=== PATIENT | male | born 1960 | race Caucasian/White ===

== ENCOUNTER 2023-02-05 16:20 | Emergency (ER) | payer BC | END 2023-02-05 17:37 | disposition home or self-care (01) | LOC: JP.ED 16:20 | DX: H10.9 Unspecified conjunctivitis (principal); Z88.0 Allergy status to penicillin | CPT/HCPCS: 99283 ==

== ENCOUNTER 2023-08-05 07:35 | Day surgery (SDC) | payer BC ==
[~2023-08-05 07:35] MED LIST: Midazolam 1 MG/ML 2 ML SDV ONE; Propofol 200 MG/20 ML SDV ONE; fentaNYL 50 MCG/ML SDV ONE
[2023-08-05] MEDS ORDERED: Lactated Ringers 1,000 ML IV SCH (08:00)
== END 2023-08-05 11:45 | disposition home or self-care (01) ==
LOC: JP.SDS 07:35
PROVIDERS: ATTEND Student in an Organized Health Care Education/Training Program
DX: Z12.11 Encounter for screening for malignant neoplasm of colon (principal); D12.4 Benign neoplasm of descending colon; K57.30 Diverticulosis of large intestine without perforation or abscess without bleeding; K63.5 Polyp of colon
CPT/HCPCS: 45380; 88305; J2250; J2704; J3010; J7120

== ENCOUNTER 2024-11-21 07:32 | Day surgery (SDC) | payer BC ==
[~2024-11-21 07:32] MED LIST changes: +Bupivacaine 0.5% 30 ML SDV ONE; +fentaNYL 100 MCG/2 ML SDV ONE; -fentaNYL 50 MCG/ML SDV ONE
[2024-11-21 07:48] LABS: HEMATOCRIT 45.3 % (38.4-49.7); HEMOGLOBIN 15.6 g/dL (12.9-16.9); MEAN CORPUSCULAR HEMOGLOBIN 31.1 pg (31.6-35.5); MEAN CORPUSCULAR HGB CONC 34.4 g/dL (31.6-35.5); MEAN CORPUSCULAR VOLUME 90.4 fL (81.4-99.0); RED BLOOD CELL COUNT 5.01 M/uL (4.14-5.76); WHITE BLOOD CELL COUNT,WBC 8.1 K/uL (3.2-11.0)
[2024-11-21 08:16] LABS: A/G RATIO 1.2 (1.2-2.2); ALANINE AMINOTRANSFERASE,ALT 37 U/L (12-78); ALKALINE PHOSPHATASE 113 U/L (46-116); ANION GAP 11.6 mmol/L (5.0-14.0); ASPARTATE AMNIOTRANSFERASE,AST 28 U/L (15-37); BILIRUBIN TOTAL 0.3 mg/dL (0.2-1.0); BLOOD UREA NITROGEN,BUN 14 mg/dL (7-18); CALCIUM 8.9 mg/dL (8.5-10.1); CARBON DIOXIDE,CO2 24 mmol/L (21-32); CHLORIDE,CL 104 mmol/L (100-108); EST CRCL DRUG DOSING (CG) 76.59 mL/min; ESTIMATED GFR 85 mL/min (>60); GLUCOSE RANDOM 107 mg/dL (74-106); POTASSIUM,K 3.9 mmol/L (3.6-5.2); PROTEIN TOTAL,TP 7.4 g/dL (6.4-8.2); SODIUM,NA 140 mmol/L (140-148)
[2024-11-21] MEDS: Lactated Ringers 1,000 ML IV SCH (08:16)
[2024-11-21] MEDS: Nozin Nasal Sanitizer NASBOTH ONE (08:19)
[2024-11-21] MEDS ORDERED: Rocuronium 50 MG/5 ML Vial ONE ×2 (10:19→11:24)
[2024-11-21] MEDS ORDERED: Ondansetron 4 MG/2 ML SDV ONE (10:30)
[2024-11-21] MEDS ORDERED: Dexamethasone 4 MG/ML SDV ONE (10:30)
[2024-11-21] MEDS: ceFAZolin 2 GM in Premix Bag 1 BAG IV ONE (10:54)
[2024-11-21] MEDS ORDERED: fentaNYL 250 MCG/5 ML SDV ONE (11:24)
[2024-11-21] MEDS ORDERED: Glycopyrrolate 0.2 MG/ML 5 ML MDV ONE (11:40)
[2024-11-21] MEDS ORDERED: Neostigmine Methylsulfate 10 MG/10 ML MDV ONE (11:40)
[2024-11-21] MEDS ORDERED: Acetaminophen/oxyCODONE 325-5 MG Tab PO PRN (12:34)
== END 2024-11-21 14:30 | disposition home or self-care (01) ==
LOC: JP.SDS 07:32
PROVIDERS: ATTEND Specialist
DX: M75.102 Unspecified rotator cuff tear or rupture of left shoulder, not specified as traumatic (principal); M75.42 Impingement syndrome of left shoulder; S43.432A Superior glenoid labrum lesion of left shoulder, initial encounter; S46.212A Strain of muscle, fascia and tendon of other parts of biceps, left arm, initial encounter; K21.9 Gastro-esophageal reflux disease without esophagitis; E11.9 Type 2 diabetes mellitus without complications; X58.XXXA Exposure to other specified factors, initial encounter
CPT/HCPCS: 29826; 29827; 36415; 80053; 85027; 93005; 93010; A9270; C1713; J0665; J0690; J1100; J1596; J2250; J2405; J2704; J2710; J3010; J7120; 01630-QZ; J3490

== ENCOUNTER 2025-07-31 07:33 | Day surgery (SDC) | payer BC ==
[~2025-07-31 07:33] MED LIST changes: -Bupivacaine 0.5% 30 ML SDV ONE; +Dexamethasone 4 MG/ML SDV ONE; +Ondansetron 4 MG/2 ML SDV ONE
[2025-07-31 08:05] LABS: BASOPHILS ABSOLUTE AUTO 0.06 K/uL (0.00-0.10); BASOPHILS PERCENT AUTO 0.9 % (0.1-1.3); EOSINOPHILS ABSOLUTE AUTO 0.09 K/uL (0.00-0.40); EOSINOPHILS PERCENT AUTO 1.3 % (0.0-5.4); IMMATURE GRAN ABSOLUTE AUTO 0.03 K/uL (0.00-0.23); IMMATURE GRAN PERCENT AUTO 0.4 % (0.0-0.7); LYMPHOCYTES ABSOLUTE AUTO 2.13 K/uL (0.8-3.3); LYMPHOCYTES PERCENT AUTO 30.3 % (11.4-47.7); MONOCYTES ABSOLUTE AUTO 0.87 K/uL (0.20-0.90); MONOCYTES PERCENT AUTO 12.4 % (3.3-12.6); NEUTROPHILS ABSOLUTE AUTO 3.85 K/uL (1.0-7.6); NEUTROPHILS PERCENT AUTO 54.7 % (40.0-78.1); PLATELET COUNT,PLT 188 K/uL (130-375); RED BLOOD CELL COUNT 4.43 M/uL (4.14-5.76); WHITE BLOOD CELL COUNT,WBC 7.0 K/uL (3.2-11.0)
[2025-07-31] MEDS: Lactated Ringers 1,000 ML IV SCH (08:13)
[2025-07-31] MEDS: Nozin Nasal Sanitizer NASBOTH ONE (08:13)
[2025-07-31 08:22] LABS: BLOOD UREA NITROGEN,BUN 12 mg/dL (7-18); CARBON DIOXIDE,CO2 28 mmol/L (21-32); CHLORIDE,CL 107 mmol/L (100-108); CREATININE 0.9 mg/dL (0.8-1.3); ESTIMATED GFR 97 mL/min (>60); GLUCOSE RANDOM 104 mg/dL (74-106); POTASSIUM,K 3.7 mmol/L (3.6-5.2); SODIUM,NA 143 mmol/L (140-148)
[2025-07-31] MEDS ORDERED: Propofol 200 MG/20 ML SDV ONE (08:56)
[2025-07-31] MEDS ORDERED: Succinylcholine 200 MG/10 ML MDV ONE (09:51)
[2025-07-31] MEDS: Acetaminophen/oxyCODONE 325-5 MG Tab PO PRN (12:06)
== END 2025-07-31 12:31 | disposition home or self-care (01) ==
LOC: JP.SDS 07:33
PROVIDERS: ATTEND Specialist
DX: M19.012 Primary osteoarthritis, left shoulder (principal); M75.42 Impingement syndrome of left shoulder
CPT/HCPCS: 29824; 36415; 80048; 85025; A9270; C1713; J0330; J0665; J0690; J1100; J2250; J2405; J2704; J3010; J7120; J3490